=== PATIENT | female | born 1965 | race African-American/Black ===

== ENCOUNTER 2018-11-21 15:33 | Emergency (ER) | payer OTHER ==
--- NOTE | 2018-11-21 16:00 | PDOC ---
History of Present Illness - General Chief Complaint: Chest Pain Stated Complaint: CHEST PAIN Time Seen by Provider: 11/21/18 15:53 - History of Present Illness Initial Comments: 11/21/18 15:57 Ms. Rojas is a 53 yo female w/ pmh of HTN, HLD, DM, CAD s/p 2 stents (2012), prior PE's (both last year in november) now on eliquis, who presents for evaluation of 1 hour history of upper abdominal pain patient reports extended up into her chest. Patient reports pain was not related to any activity or food. Patient has never had pain like this before. Of note, patient recently had a heart monitor trial (patient unsure of reason why) and was told she may need a pacemaker. Patient also reports 1 week history of vaginal bleeding for which she was evaluated by [facility]PECTOR yesterday and told she may need a D&C. The patient shortness of breath, headache and dizziness. Denies fever, chills, nausea, vomit, diarrhea and constipation. Denies dysuria, frequency, urgency and hematuria. Past History - Past Medical History Allergies/Adverse Reactions: Allergies Allergy/AdvReac Type Severity Reaction Status Date / Time lisinopril Allergy Verified 11/21/18 17:21 Home Medications: Ambulatory Orders Albuterol Sulfate Inhaler - [Ventolin Hfa Inhaler -] 2 inh PO Q4H 11/21/18 Amlodipine Besylate [Norvasc -] 10 mg PO DAILY 11/21/18 Apixaban [Eliquis -] 5 mg PO DAILY 11/21/18 Atorvastatin Calcium 80 mg PO DAILY 11/21/18 Hydrochlorothiazide [Hctz -] 25 mg PO DAILY 11/21/18 Metformin HCl [Glucophage] 1,000 mg PO BID 11/21/18 Oxybutynin Chloride [Ditropan -] 5 mg PO BID 11/21/18 Pantoprazole Sodium [Protonix -] 40 mg PO DAILY 11/21/18 Tiotropium Br/Olodaterol HCl [Stiolto Respimat Inhal [place]] 2 puff IN DAILY Review of Systems - Review of Systems Comments:: 11/21/18 16:00 GENERAL/CONSTITUTIONAL: No fever or chills. No weakness. HEAD, EYES, EARS, NOSE AND THROAT: No change in vision. No ear pain or discharge. No sore throat. CARDIOVASCULAR: +Chest pain "from stomach hurting" for 1 hour. No shortness of breath RESPIRATORY: No cough, wheezing, or hemoptysis. GASTROINTESTINAL: +Abdominal pain as described. No nausea, vomiting, diarrhea or constipation. GENITOURINARY: No dysuria, frequency, or change in urination. MUSCULOSKELETAL: No joint or muscle swelling or pain. No neck or back pain. SKIN: No rash NEUROLOGIC: No headache, vertigo, loss of consciousness, or change in strength/ sensation. ENDOCRINE: No increased thirst. No abnormal weight change HEMATOLOGIC/LYMPHATIC: No anemia, easy bleeding, or history of blood clots. ALLERGIC/IMMUNOLOGIC: No hives or skin allergy. *Physical Exam - Physical Exam Comments: 11/21/18 16:00 GENERAL: Awake, alert, and fully oriented, in no acute distress HEAD: No signs of trauma, normocephalic, atraumatic EYES: PERRLA, EOMI, sclera anicteric, conjunctiva clear ENT: Auricles normal inspection, hearing grossly normal, nares patent, oropharynx clear without exudates. Moist mucosa NECK: Normal ROM, supple, no lymphadenopathy, JVD, or masses LUNGS: No distress, speaks full sentences, clear to auscultation bilaterally HEART: Regular rate and rhythm, normal S1 and S2, no murmurs, rubs or gallops, peripheral pulses normal and equal bilaterally. ABDOMEN: +RUQ TTP. Soft, normoactive bowel sounds. No guarding, no rebound. No masses EXTREMITIES: +MUKESH Pedal edema 2+. Normal range of motion, no edema. No clubbing or cyanosis. NEUROLOGICAL: Cranial nerves II through XII grossly intact. Normal speech, normal gait, no focal sensorimotor deficits SKIN: Warm, Dry, normal turgor, no rashes or lesions noted. VAGINAL: +No CMT. Diffuse pelvic tenderness. Blood pooling in vaginal vault noted. Heart Score/ECG Review - History History: Moderately suspicious - Electrocardiogram EKG: Non specific repolarization disturbance - Age Age: 45-65 - Risk Factors Risk Factors Heart Score: Yes Hx Hypercholesterolemia, Yes Hx Hypertension, Yes Hx Diabetes, Yes Hx Obesity Based on the list above the patient has:: >/=3 risk factors or Hx atherosclerotic disease - Troponin Troponin: </= normal limit - Score Heart Score - Total: 5 ED Treatment Course - LABORATORY CBC & Chemistry Diagram: 11/21/18 14:30 11/21/18 16:12 Medical Decision Making - Medical Decision Making 11/21/18 16:50 Ms. Rojas is a 53 yo female w/ pmh as described who presents for evaluation of chest pain concerning for ACS vs. anemia vs. referred pain. Patient evaluated started with cardiac labs as well as EKG and CXR. 11/21/18 17:06 Upon repeat exam patient noted to have abdominal pain in lower quadrants MUKESH. Pelvic exam performed for further evaluation of patient's bleeding and pain significant for blood and generalized tenderness. Patient will be evaluated with TVUS for r/o fibroids vs. other acute process. Patient EKG significant for T wave inversions in aVL with signs of left ventricular hypertrophy and left atrial enlargement. 11/21/18 17:34 Patient denies taking hydralazine today (scheduled for 10mg TID as below). BP noted to be elevated in ER. 10mg ordered for treatment as patient deneis having taken today. Call to pt's pharmacy yielded meds as below: hydralazine 10 tid atorvastatin 80 once eliquis 5 bid metformin 1000 bid hctz 25 once amlodipine 10 once pantoprazole 40 once oxybutinin 5 bid stiolto inhaler 11/21/18 17:59 Patient noted to have continued elevated blood pressure. Patient reporting improvement of her pain at this time. Patient also refusing TVUS as she had one yesterday by [facility] VESSEL INSPECTOR. Patient would like to leave AMA at this time. Patient advised that given her chest pain and elevated BP as well as significant co- morbidities this could be potentially life threatening and that she should stay for further evaluation. Patient insists on leaving AMA and signed corresponding form. Patient encouraged to f/u w/ PCP as soon as possible and return to ER immediately if any further pain or other symptoms. *DC/Admit/Observation/Transfer Diagnosis at time of Disposition: Vaginal bleeding Chest pain Qualifiers: Chest pain type: unspecified Qualified Code(s): R07.9 - Chest pain, unspecified - Discharge Dispostion Disposition: AGAINST MEDICAL ADVICE - Referrals Referrals: Hero Kay [Primary Care Provider] - - Patient Instructions Printed Discharge Instructions: DI for Chest Pain Additional Instructions: You were evaluated today in the ER for your chest pain and other symptoms. We performed an EKG as well as cardiac labs with no emergent findings. We also recommended transvaginal US and admission for further evaluation however you chose to leave against medical advice. Given your past medical history this is very dangerous and we recommend you follow-up with primary care provider as soon as possible. Please return to ER IMMEDIATELY if any further pain, weakness , shortness of breath, or other concerning symptoms. - Post Discharge Activity
[2018-11-21] MEDS ORDERED: FAMOTIDINE 20 MG/50 ML IVPB 20 MG/50 ML MG IVPB ONE (16:13)
[2018-11-21] MEDS ORDERED: ONDANSETRON 4 MG/2 ML VIAL IVPUSH ONE (16:14)
[2018-11-21] MEDS ORDERED: SODIUM CHLORIDE 1,000 ML IV STA (16:14)
[2018-11-21] MEDS ORDERED: ACETAMINOPHEN 1000 MG/100 ML VIAL (NON FORMULARY) IVPB ONE (16:33)
[2018-11-21 16:55] LABS: BASO % 0.2 % (0-2.0); EOS % 0.3 % (0-4.5); HEMATOCRIT 38.5 % (32.4-45.2); HEMOGLOBIN 12.2 GM/dL (10.7-15.3); LYMPH % 12.8 % (8-40); MCH 26.8 pg (25.7-33.7); MCHC 31.8 g/dl (32.0-36.0); MEAN CELL VOLUME 84.1 fl (80-96); MEAN PLT VOLUME 8.5 fl (7.5-11.1); MONO % 4.7 % (3.8-10.2); PLATELET COUNT 192 K/MM3 (134-434); RBC 4.57 M/mm3 (3.60-5.2); RDW 17.8 % (11.6-15.6); WHITE BLOOD COUNT 9.4 K/mm3 (4.0-10.0)
[2018-11-21 17:06] LABS: INR 1.04 (0.83-1.09); PROTHROMBIN TIME (PATIENT) 12.3 SEC (9.7-13.0)
[2018-11-21 17:08] LABS: ACTIVATED PTT 29.9 SECONDS (25.2-36.5)
[2018-11-21 17:30] VITALS: BP 198/96; PULSE 83; TEMP 97.4; BMI 47.1
[2018-11-21] MEDS ORDERED: hydrALAZINE HCL 10 MG TABLET PO ONE (17:42)
[2018-11-21 17:49] LABS: ALBUMIN 3.5 g/dl (3.4-5.0); ALK PHOS 93 U/L (45-117); ANION GAP 10 MMOL/L (8-16); BILIRUBIN,TOTAL 0.4 mg/dL (0.2-1); BLOOD UREA NITROGEN 21 mg/dL (7-18); CALCIUM 8.8 mg/dL (8.5-10.1); CHLORIDE 107 mmol/L (98-107); CO2 22 mmol/L (21-32); CREATININE 0.8 mg/dL (0.55-1.3); GLUCOSE,RANDOM 121 mg/dL (74-106); LIPASE 70 U/L (73-393); POTASSIUM 3.3 mmol/L (3.5-5.1); SGOT/AST 12 U/L (15-37); SGPT/ALT 24 U/L (13-61); SODIUM 139 mmol/L (136-145); TOT PROT 6.8 g/dl (6.4-8.2)
--- NOTE | 2018-11-21 17:50 | PDOC ---
Documentation entered by Anthony Miller SCRIBE, acting as scribe for Nimo Toledo MD. Nimo Toledo MD: This documentation has been prepared by the Paul saab Nirvannie, SCRIBE, under my direction and personally reviewed by me in its entirety. I confirm that the documentation accurately reflects all work, treatment, procedures, and medical decision making performed by me. Attending Attestation - Resident Resident Name: Maged Shoemaker - ED Attending Attestation I have performed the following: I have examined & evaluated the patient, The case was reviewed & discussed with the resident, I agree w/resident's findings & plan - HPI HPI: 11/21/18 16:46 The patient is a 53 year old female, with a significant past medical history of fibroids, HTN, HLD, DM, CAD s/p 2 stents (2012), PEs (11/2017 in [place] on [facility]), who presents to the emergency department with, 1 hour of lower quadrant abdominal pain and 4 hours of CP. Patient notes 9 days of daily vaginal bleeding for which she went to her RUFFLER yesterday and was recommended to have D&C. She states that her RUFFLER may have seen fibroids on her US but is not sure. She reports her bleeding is mostly spotting, no heavy bleeding or clotting. Patient endorses an associated mild dull sternal non radiating chest pain. The chest pain began while she was sitting at home this morning. She reports upon arrival to the ED, the CP has improved but is still persistent. She denies recent fevers, chills, headache or dizziness. She denies SOB or diaphoresis. She denies recent nausea, vomit, diarrhea or constipation. She denies recent dysuria, frequency, urgency or hematuria. - Physicial Exam PE: 11/21/18 16:46 GENERAL: Awake, alert, and fully oriented, in no acute distress EYES: PERRLA, EOMI, sclera anicteric, conjunctiva clear ENT: Nares patent, oropharynx clear without exudates. Moist mucosa LUNGS: Breath sounds equal, clear to auscultation bilaterally. No wheezes, and no crackles HEART: Regular rate and rhythm, normal S1 and S2, no murmurs, rubs or gallops ABDOMEN: +Obese. +Diffuse lower quadrant abdominal ttp. Soft, normoactive bowel sounds. No guarding, no rebound. No masses EXTREMITIES: Normal range of motion, 1+ symmetric pitting edema b/l, no erythema , or tenderness BACK: No midline spinal tenderness in cervical/thoracic/lumbar region NEUROLOGICAL: Normal speech, cranial nerves intact, equal strength and sensation b/l SKIN: Warm, Dry, normal turgor, no rashes or lesions noted. - Medical Decision Making 11/21/18 17:42 53yo F with MMP including CAD, PE, HTN, HL, DM presents to the ED with lower abdominal pain, vaginal bleeding, and chest pain. Vitals with elevated BP, although pt reports she did not take her hydralzine today. Med list comfirmed with pt's pharmacy by Dr. Shoemaker, hydralzine home dose ordered Exam with lower abd ttp, pelvic by Dr. Shoemaker with blood in vaginal vault but no active bleeding and os closed. No masses visualized With regards to vaginal bleeding and lower abd pain, plan for TVUS, and RUFFLER consult - ddx includes DUB vs fibroids vs masses With regards to CP at rest since this AM, ddx includes ACS vs PNA vs PE. Pt compliant with eliquis BID, denies SOB, and has no tachycardia/hypoxia this low likelihood PE. Pt is intermediate risk heart score with hx CAD, HTN, HL, and lateral TWI (no prev EKG to compare). 11/21/18 18:31 Labs including trop neg Pt feeling much better, denies abd pain and chest pain Now refusing US, CTAP, remaining cardiac w/u because she feels better and wants to go home Discussed with pt that her medical history makes her high risk for an acute coronary syndrome. She states "the chest pain wasn't really bad, I only had it for a minute" The patient is clinically sober, free from distracting injury, appears to have intact insight and judgment and reason and in my opinion has the capacity to make decisions. The patient presents with chest pain, abdominal pain, and vaginal bleeding. I have explained that I am concerned that this may represent a problem with her heart or a problem in her abdomen that may require surgery; she has verbalized an understanding of my concerns. I have told the patient that while her labs were normal, she could still have a problem with her heart or abdomen. I have discussed the need for US, CT scan, and more labs to get more information about potential causes of the patients symptoms. I have told the patient that if she leaves and has recurrent chest or abdomen pain, she could get much worse, could become critically ill, and could possibly become disabled or . I have offered to give the patient more pain medication. I have asked her to stay in the hospital for serial exams. I have discussed these concerns with the patients daughter in law who is at the bedside and she is unable to convince her to stay for further evaluation. She is unwilling to stay overnight for monitoring. She is refusing any further care and is leaving against medical advice. I am unable to convince the patient to stay, I have asked them to return as soon as possible to complete their evaluation. I have answered all their questions. Heart Score/ECG Review - History History: Slightly suspicious - Electrocardiogram EKG: Non specific repolarization disturbance - Age Age: 45-65 - Risk Factors Risk Factors Heart Score: Yes Hx Hypercholesterolemia, Yes Hx Hypertension, Yes Hx Diabetes, Yes Hx Obesity Based on the list above the patient has:: >/=3 risk factors or Hx atherosclerotic disease - Troponin Troponin: </= normal limit - Score Heart Score - Total: 4 #1 11/21/18 17:41 Twelve-lead EKG was performed and reviewed by me. Normal sinus rhythm, rate 83. Normal axis. No ST elevations. T wave inversions in 1 and aVL. No previous EKGs to compare.
--- NOTE | 2018-11-22 11:04 | EKG ---
Test Reason : Blood Pressure : / mmHG Vent. Rate : 083 BPM Atrial Rate : 083 BPM P-R Int : 180 ms QRS Dur : 094 ms QT Int : 414 ms P-R-T Axes : 044 -19 110 degrees QTc Int : 486 ms NORMAL SINUS RHYTHM POSSIBLE LEFT ATRIAL ENLARGEMENT LEFT VENTRICULAR HYPERTROPHY WITH REPOLARIZATION ABNORMALITY INFERIOR INFARCT , AGE UNDETERMINED ABNORMAL ECG NO PREVIOUS ECGS AVAILABLE Confirmed by CARYL BRITO MD ([id number]) on 11/22/2018 11:03:44 AM Referred By: Confirmed By:CARYL BRITO MD
== END 2018-11-21 18:40 | disposition left against medical advice (07) ==
LOC: JER 15:33
PROC: 3E0337Z Introduction of Electrolytic and Water Balance Substance into Peripheral Vein, Percutaneous Approach (ICD-10-PCS; principal; 2018-11-21)
PROC: 3E033GC Introduction of Other Therapeutic Substance into Peripheral Vein, Percutaneous Approach (ICD-10-PCS; 2018-11-21)
PROC: 3E033GC Introduction of Other Therapeutic Substance into Peripheral Vein, Percutaneous Approach (ICD-10-PCS; 2018-11-21)
PROC: 3E033NZ Introduction of Analgesics, Hypnotics, Sedatives into Peripheral Vein, Percutaneous Approach (ICD-10-PCS; 2018-11-21)
DX: R07.9 Chest pain, unspecified (principal); N93.8 Other specified abnormal uterine and vaginal bleeding; I25.10 Atherosclerotic heart disease of native coronary artery without angina pectoris; I10 Essential (primary) hypertension; Z95.5 Presence of coronary angioplasty implant and graft; E78.5 Hyperlipidemia, unspecified; E11.9 Type 2 diabetes mellitus without complications; Z86.711 Personal history of pulmonary embolism; Z79.01 Long term (current) use of anticoagulants; Z79.84 Long term (current) use of oral hypoglycemic drugs
CPT/HCPCS: 36415; 71045-TC-FY; 80053; 82550; 83690; 84484; 85025; 85610; 85730; 93005; 93010; 96361; 96365; 96375; 99283-25; J0131; J7030